=== PATIENT | male | born 1985 | race Caucasian/White ===

== ENCOUNTER → 2022-10-27 09:39 | Outpatient (POV) | payer BC, SELFPAY ==
[2022-10-27 10:16] VITALS: BP 130/95; PULSE 107; RESP 20; O2SAT 98; BMI 26.4
--- NOTE | 2022-10-27 10:45 | EXP.PAIN.OV ---
HPI Data of Consult Patient: new to practice Consult date: 10/27/22 Requesting Physician: Yvonne Lawson APRN Primary Care Provider: Lupillo Berrios MD Consult Narrative Reason for consult: Left inguinal pain, left abdominal pain History of present illness: Mr. Robledo is a 37 year old male who presents today as a new patient. He is a referral from the [facility]. Today he rates his pain a 5 out of 10. Patient states his pain is all over his left inguinal area related to a left inguinal hernia repair done 1 year ago. He does describe this as a constant aching sensation with sharp stabbing sensations with certain movements. He also has radiating symptoms into his abdomen along the left side and describes these as a sharp sensation. He states that his abdomen symptoms are more prominent when he is working or active with certain movements. Patient states that he is unsure whether or not if this is related to his mesh and that if it is on a nerve or something along those lines. Patient has had inguinal nerve blocks and trigger point injections of his abdominal muscles on the left side in the past that did provide significant relief for approximately 2 weeks. Patient states he is scheduled to see his general surgeon on [facility] [address] in [place] to review over his continued pain. Patient states it is never gotten any better from originally having the surgery and thinks something may have just not healed right. Patient does use [id number] Tylenol and ibuprofen along with ice for additional relief. Patient has tried physical therapy and continued at home exercising and stretching for longer than 6 weeks with minimal improvement. He is interested in repeating his injections at today's visit. Patient is not on any scheduled medications. His Khai is [phone]. Its been reviewed and appropriate. CC: Yvonne Lawson APRN [facility] Disclaimer: The information contained in this section may have been updated after the patient was seen, as this information can be updated by other users. Medical History (Updated 10/27/22 @ 10:51 by Yvonne Lawson APRN) No significant past medical history Surgical History (Updated 10/27/22 @ 10:18 by Liana Lawson RN) H/O left inguinal hernia repair Family History (Updated 10/27/22 @ 10:17 by Liana Lawson RN) Other No significant family history Social History (Updated 10/27/22 @ 10:22 by Liana Lawson RN) Smoking Status: Current every day smoker alcohol intake: current current occupational status: employed Travel in the last 8 weeks: None Review of Systems Review of Systems Review of systems:: pertinent systems reviewed and negative unless documented below Review of systems (narrative): Review of Systems: General: No recent weight changes, no fever, no sleep disturbances Respiratory: No cough, no shortness of air, no recurring pulmonary infections Cardiovascular/peripheral vascular: No chest pain, no palpitations, no edema, no shortness of breath Gastrointestinal: No new onset incontinence, normal bowel movements reported Genitourinary: No new onset incontinence Musculoskeletal: Left inguinal pain, left abdominal pain Psychiatric: [Normal mood/affect] Neurological: [Denies weakness in extremities], [denies balance issues] Meds Home Medications and Allergies New Prescriptions to Start Prescriptions: Objective Vital signs: Pulse Resp BP Pulse Ox 107 H 20 130/95 H 98 10/27/22 10:16 10/27/22 10:16 10/27/22 10:16 10/27/22 10:16 Narrative: Physical Exam: General: Alert and oriented x3, no acute distress, pleasant and cooperative Lungs: Respirations even and unlabored, symmetrical chest expansion Eyes: PERRL Musculoskeletal: Flexion and extension of lumbar [spine] somewhat guarded secondary to pain, [antalgic gait noted] point tenderness noted along his left abdominal muscles and left inguinal area Neurological: Speech santosh
== END ==
PROVIDERS: PCP Family Medicine; Visit Provider Nurse Practitioner Family
DX: M79.18 Myalgia, other site (principal); R10.32 Left lower quadrant pain
CPT/HCPCS: 99202; G0463

== ENCOUNTER 2022-11-02 13:35 | Day surgery (SDC) | payer BC, SELFPAY ==
[2022-11-02 14:01] VITALS: BP 143/86; PULSE 72; RESP 18; TEMP 36.9; O2SAT 99; BMI 26.4
[2022-11-02 14:05] VITALS: BP 129/91; PULSE 70; RESP 18; O2SAT 98
[2022-11-02 14:06] VITALS: BP 129/91; PULSE 70; RESP 18; O2SAT 97
[2022-11-02 14:10] VITALS: BP 148/91; PULSE 73; RESP 18; O2SAT 99
--- NOTE | 2022-11-02 14:10 | P.PCN_ITS ---
Procedure Date: 11/02/22 Time: 04:11 Anesthesiologist:: Wayne Pinedo CRNA Complications:: None Pre-procedure Diagnosis:: Left inguinal pain Post-procedure Diagnosis:: Same. Indications for Procedure:: Patient is status post left inguinal hernia repair with mesh. He is continue to have pain in the left inguinal area and lower left abdominal area 1 year ago. He rates his pain 6/10. Patient states pain increases with activity. Procedure Details:: Details of the procedure explained to the patient. The patient taken the procedure room placed in the supine position. The area over the left lower abdomen was cleaned using chlorhexidine as a cleansing solution. Using a 25- gauge inch and a half needle a solution containing 1% lidocaine and 0.25% Marcaine +40 mg of Depo-Medrol was injected in a fanning fashion anterior to the left iliac crest in the lower left abdomen. Patient tolerated procedure without difficulty. There are no complications Plan and Disposition:: Patient was discharged without incident.
== END 2022-11-02 14:10 | disposition home or self-care (01) ==
PROVIDERS: PCP Family Medicine; Visit Provider Nurse Anesthetist, Certified Registered
DX: Z98.890 Other specified postprocedural states; R10.32 Left lower quadrant pain
CPT/HCPCS: 64425; J1030